=== PATIENT | male | born 1985 | race Caucasian/White ===

== ENCOUNTER 2022-04-16 12:49 | Outpatient (CLI) | payer MEDICAID | END 2022-04-16 23:59 | disposition critical access hospital (66) | LOC: EMS 12:49 | DX: R56.9 Unspecified convulsions (principal); R46.4 Slowness and poor responsiveness; R52 Pain, unspecified; R06.02 Shortness of breath; R42 Dizziness and giddiness; R53.1 Weakness | CPT/HCPCS: A0425; A0429; A0999 ==

== ENCOUNTER 2022-04-16 13:08 | Emergency (ER) | payer MEDICAID ==
[2022-04-16] MEDS ORDERED: cloNIDine 0.1 MG TABLET PO STA (13:22)
--- NOTE | 2022-04-16 13:26 | ED Physician Documentation ---
History of Present Illness - Stated complaint Stated Complaint: SZ/ANXIETY - Chief complaint Chief Complaint: General - Additonal information Additional information: 37-year-old male presents to the emergency department via EMS from [facility] at the local detox facility. Reportedly the patient checked into [facility] yesterday in the afternoon for fentanyl abuse. He states that he was forced to go there by his family. In review of the medications started at [facility] he has been prescribed buprenorphine/naloxone as well as clonidine. Patient has also been receiving gabapentin and hydroxyzine. Patient tells me that he has fibromyalgia and everything hurts and he is anxious and feels horrible. He thinks that he would like to return to [facility]. However he did tell the nurse that he wanted a taxi to go back to [place] Patient is anxious and somewhat agitated. He is a poor historian. Review of Systems Constitutional: reports: Myalgias Psychiatric: reports: Anxiety PD PAST MEDICAL HISTORY - Present Medications Home Medications: Ambulatory Orders Medication Instructions Recorded Confirmed Buprenorphine HCl/Naloxone HCl 1 each SL BID 04/16/22 04/16/22 [Buprenorphine-Nalox 8-2Mg Film] - Allergies Allergies/Adverse Reactions: Allergies Allergy/AdvReac Type Severity Reaction Status Date / Time Sulfa (Sulfonamide Allergy Anaphylaxis Verified 04/16/22 13:21 Antibiotics) PD ED PE EXPANDED - General General: Disheveled, poorly kept, Anxious - Cardiac Cardiac: Regular Rate, Radial strong equal, Pedal strong equal, Cap refill < 2 sec. No: Murmur Present - Respiratory Respiratory: Clear to ausultation shan. No: Distress, Labored - Abdomen Abdomen: Normal Bowel sounds. No: Tender to palpation - Derm Derm: Normal color - Neuro Neuro: Alert and Oriented X 3, CNII-XII intact - GCS Eye Opening: Spontaneous Motor: Obeys Commands Verbal: Oriented Total: 15 - Psych Psych: Anxious, Agitated Results - Vitals Vitals: Vital Signs - 24 hr 04/16/22 04/16/22 04/16/22 13:11 13:15 13:43 Temperature 36.7 C Heart Rate 85 Respiratory 16 20 21 Rate Blood Pressure 154/71 H O2 Saturation 100 Oxygen O2 Source Room air PD Medical Decision Making - ED course Complexity details: re-evaluated patient, considered differential, d/w patient ED course: This is a 37-year-old male who presented to the emergency department via EMS from the local detox facility for pain everywhere. The patient has been at [facility] now for almost 48 hours. Previous to this he was using 30-60 opioid pills a day. In review of the records from the receiving facility it appears that he has been receiving frequent doses of Suboxone, hydroxyzine and clonidine. On presentation here the patient is anxious. Reporting pain everywhere. I have reviewed his vital signs. There is some mild but not worrisome hypertension. He does not have tachycardia or fever. He is alert and oriented though anxious and somewhat agitated. Here in the emergency department I did give him a single dose of buprenorphine 0.3 mg IM as well as a single dose of 0.1 mg clonidine orally. I discussed with the patient his opioid withdrawal. He admits to heavy use and recognizes that the pain and symptoms he is having are due to withdrawal. He indicates that this was a court mandated treatment. He is at this time willing to return to [facility] which is likely the best place in order to complete the detox process. History and exam is consistent with opioid withdrawal. Given lack of fever I have no suspicion for an infectious process. He is neurologically intact with no focal deficits. He has normal cerebellar exam. History is not consistent with meningeal or CVA process. He does not present with acute delirium I have personally spoken with the [facility] staff and let them know of my plan and findings here in the emergency department. They report that they will attempt to arrange transport back to their facility. Departure - Departure Disposition: 01 Home, Self Care Clinical Impression: Opioid withdrawal Condition: Stable Record reviewed to determine appropriate education?: Yes Comments: Darci you came to the emergency department today because everything hurts and you are anxious. You did enter detox about 2 days ago. The detox process can be uncomfortable but in order to free you from fentanyl abuse it is important that you go through this process. [facility] is willing to receive you back. They will continue to medicate you to help with your withdrawal symptoms. I would anticipate however that the next few days are uncomfortable. Here in the emergency department we did give you a single dose of buprenorphine 0.3 mg IM as well as a single dose of oral clonidine. Here in the emergency department your exam has been reassuring and normal vital signs with only mild hypertension. I wish you well in your journey
[2022-04-16] MEDS ORDERED: BUPRENORPHINE 0.3 MG/ML VIAL IM ONE (13:31)
[2022-04-16 14:31] VITALS: BP 138/74
== END 2022-04-16 16:41 | disposition home or self-care (01) ==
LOC: ED 13:08
DX: F11.23 Opioid dependence with withdrawal (principal)
CPT/HCPCS: 96372; 99283; 99284; A9270; J0592